=== PATIENT | male | born 2000 | race African-American/Black ===

== ENCOUNTER → 2018-12-30 | Outpatient (CLI) | payer OTHER ==
--- NOTE | 2018-12-30 12:41 | CARD ---
MR#: [id number] Date of Study: 12/30/2018 Ordering Physician: SHANICE FENG, Referring Physician: SHANICE FENG, Tech: Nanette Cordova APPROVED REPORT EXAM: Two-dimensional and M-mode echocardiogram with Doppler and color Doppler. Other Information Quality : GoodHR: 64bpm INDICATION Tabby-Parkinson White Syndrome RISK FACTORS Hypertension 2D DIMENSIONS RVDd3.6 (2.9-3.5cm)Left Atrium(2D)3.5 (1.6-4.0cm) IVSd1.2 (0.7-1.1cm)Aortic Root(2D)3.2 (2.0-3.7cm) LVDd5.1 (3.9-5.9cm)LVOT Diameter2.1 (1.8-2.4cm) PWd1.1 (0.7-1.1cm)LVDs3.4 (2.5-4.0cm) FS (%) 34.2 %SV78.7 ml LVEF(%)62.8 (>50%) Aortic Valve AoV Peak Winston.134.6cm/sAoV VTI27.6cm AO Peak GR.7.2mmHgLVOT Peak Winston.118.0cm/s LVOT VTI 22.33cmAO Mean GR.4mmHg BASILIO (VMAX)3.91ec9BHW (VTI)2.89cm2 Mitral Valve MV E Fubgqkdu41.2cm/sMV DECEL [id number] MV A Uxerzlkv49.7cm/sE/A Ratio1.3 Pulmonary Valve PV Peak Kqrssupr029.6cm/sPV Peak Grad.4mmHg Tricuspid Valve TR P. Kgildrcm245wd/sRAP KKADXFHC6blLv TR Peak Gr.46enEqNPXC68agTw Pulmonary Vein S1 Ilykmohf90.0cm/sD2 Mtrzfrds53.3cm/s LEFT VENTRICLE The left ventricle is normal size. There is mild to moderate concentric left ventricular hypertrophy. The left ventricular systolic function is normal and the ejection fraction is within normal range. T he Ejection Fraction is 50-55%. There is normal LV segmental wall motion. The left ventricular diasto lic function and filling is normal for age. RIGHT VENTRICLE The right ventricle is mildly dilated. There is normal right ventricular wall thickness. The right ve ntricular systolic function is normal. ATRIA The left atrium size is normal. The right atrium size is normal. The interatrial septum is intact wit h no evidence for an atrial septal defect or patent foramen ovale as noted on 2-D or Doppler imaging. AORTIC VALVE The aortic valve is normal in structure and function. Doppler and Color Flow revealed no significant aortic regurgitation. There is no significant aortic valvular stenosis. MITRAL VALVE The mitral valve is normal in structure and function. There is no evidence of mitral valve prolapse. There is no mitral valve stenosis. Doppler and Color-flow revealed trace mitral regurgitation. TRICUSPID VALVE The tricuspid valve is normal in structure and function. Doppler and Color Flow revealed trace to mil d tricuspid regurgitation with an estimated PAP of 35 mmHg. There is no tricuspid valve stenosis. PULMONIC VALVE The pulmonary valve is normal in structure and function. Doppler and Color Flow revealed trace pulmon ic valvular regurgitation. There is no pulmonic valvular stenosis. GREAT VESSELS The aortic root is normal in size. The IVC is dilated and collapses >50%. PERICARDIAL EFFUSION There is no evidence of significant pericardial effusion. Critical Notification Critical Value: No <Conclusion> The left ventricular systolic function is normal and the ejection fraction is within normal range. Th e Ejection Fraction is 50-55%. There is normal LV segmental wall motion. The right ventricle is mildly dilated. Doppler and Color Flow revealed trace to mild tricuspid regurgitation with an estimated PAP of 35 mmH g. Signed by : Iggy Waters, Electronically Approved : 12/30/2018 12:40:59
== END | disposition home or self-care (01) ==
LOC: ECHO 11:03
PROVIDERS: ATTEND Internal Medicine Cardiovascular Disease
DX: I36.1 Nonrheumatic tricuspid (valve) insufficiency (principal); I11.9 Hypertensive heart disease without heart failure; I45.6 Pre-excitation syndrome
CPT/HCPCS: 93306